=== PATIENT | female | born 2000 ===

== ENCOUNTER 2024-07-02 15:58 | Emergency (ER) | payer SELFPAY | END 2024-07-02 16:40 | disposition home or self-care (01) | LOC: ERS 15:58 | DX: T19.2XXA Foreign body in vulva and vagina, initial encounter (principal); W44.G9XA Other non-organic objects entering into or through a natural orifice, initial encounter; Z75.8 Other problems related to medical facilities and other health care | CPT/HCPCS: 99282 ==